=== PATIENT | male | born 1990 | race Caucasian/White ===

== ENCOUNTER 2016-11-09 16:44 | Emergency (ER) | payer OTHER ==
[2016-11-09] MEDS ORDERED: KETOROLAC TROMETHAMINE 30 MG/ML VIAL IM ONE (17:49)
[2016-11-09] MEDS ORDERED: KETOROLAC TROMETHAMINE 30 MG/ML VIAL ONE (17:50)
[2016-11-09 17:57] VITALS: BP 128/48
--- NOTE | 2016-11-09 18:07 | ERNOTE ---
Lower Extremity HPI - Narrative Date of Service: 11/09/16 - General Lower Extremities Pain: ankle: left Time Seen by Provider: 11/09/16 17:47 Source: patient Exam Limitations: no limitations - Immun/Allergies/Home Medications Immunizations: IMMUNIZATION HX Immunizations Up to Date Yes History of Influenza Vaccine No Hx Pneumococcal Vaccination No Allergies/Adverse Reactions: Allergies Allergy/AdvReac Type Severity Reaction Status Date / Time Penicillins Allergy Intermediate Hives Verified 11/09/16 17:04 morphine AdvReac Severe Other Verified 11/09/16 17:05 Home Medications: HOME MEDICATIONS Naproxen [Naprosyn] 375 mg PO BID #10 tab 11/09/16 [Last Taken Unknown] - History of Present Illness Narrative: Patient presents with left ankle injury. he was at work today, stepped out of the cab of a truck and inverted his left ankle. He had immediate pain and had a "pop" with this. No fall or other injuries. no CP or SOB. Toes numb. No knee or hip or foot pain. Pain lateral ankle. Pain can be severe. Worse with movement and palpation. Occurred: just prior to arrival Location of Incident: work Method of Injury: Reports: other - inverted in a hole Reason for Fall: Reports: other - stepped in a hole Loss of Consciousness: Reports: no loss of consciousness Modifying Factors - (Improves): Reports: rest Modifying Factors - (Worsens): Reports: movement Associated Symptoms: Denies: vomiting/diarrhea Other Injuries: Reports: none Subsequent Symptoms: Reports: numbness Prior Treament: Denies: recently seen Review of Systems - Review of Systems Constitutional: Absent: fever Respiratory: Absent: shortness of breath Cardiology: Absent: chest pain Gastrointestinal/Abdominal: Absent: abdominal pain Neurological: Present: numbness, tingling, other - N/T toes - Patient's Past Medical History Patient History - Medical: No pertinent hx Patient History - Cardiac/Respiratory: No pertinent hx Patient History - Cancer: No Hx of Cancer Patient History - Surgical Procedures: T & A Patient History - Other: None - Social History Living Situations: home Abuse History: No History of abuse Psych History: No pertinent hx Smoking Status: Never smoker Have you smoked in the past 12 months: No Do you dip or chew tobacco: Yes Patient requests Smoking Cessation Consult: No Initiate information on Smoking Cessation: No Alcohol Use: occasionally Drug Use: none - Immunizations Immunizations Up to Date: Yes Hx Pneumococcal Vaccination: No History of Influenza Vaccine: No Physical Exam - Physical Exam General Appearance: Present: alert, no apparent distress Head Exam: Present: normal inspection, no evidence of injury Respiratory: Present: no respiratory distress Cardiovascular/Chest: Present: normal peripheral pulses Back Exam: Present: normal range of motion Extremity Exam: Present: other - No left hip or knee tenderness. No foot tendenress. There is swelling lateral left ankle and point tendenress here. Exam limited by pain, no gross instability. Strong DP pulse. Mcgowan testing reveals the Achilles to be intact. No compartment syndrome.\\ Neurological Exam: Present: alert, other - subjective tingling toes throughout. Hurts to move his toes but he will flicker them. no clear acute focal motor deficits but limited by pain. Skin Exam: Present: normal color, warm/dry, other - laceration ED Progress - Vital Signs Patient's Vital Signs:: I have reviewed the patient's vital signs. - X-Ray X-Ray #1 X-Ray: ankle Interpretation: Interp. by me X-ray Comments: I reviewed official x-ray report No acute fracture - Progress/Reassessment Chief Complaint: Lower Extremity Pain/ Injury Progress Note-Subjective: 11/09/16 18:04 Air cast and crutches. no Fx. Close f/u. i discussed warning signs and reasons to return as well as the need for close f/u. Departure Clinical Impression: Ankle injuries - Departure Disposition: Home self-care Condition: Stable Additional Instructions: Rest. Ice. Elevation. Splint and crutches as directed. Follow-up with your doctor in the next 1-2 days for a re-check. Return for increased pain, numbness , tingling, weakness or if your condition worsens or changes in any way. Prescriptions: Naproxen [Naprosyn] 375 mg PO BID #10 tab
== END 2016-11-09 18:14 | disposition home or self-care (01) ==
LOC: ER 16:44
PROC: 2W3RX1Z Immobilization of Left Lower Leg using Splint (ICD-10-PCS; principal; 2016-11-09)
DX: S99.912A Unspecified injury of left ankle, initial encounter (principal); X58.XXXA Exposure to other specified factors, initial encounter; Y93.89 Activity, other specified; Y92.69 Other specified industrial and construction area as the place of occurrence of the external cause; Y99.0 Civilian activity done for income or pay; Z72.0 Tobacco use